=== PATIENT | female | born 1965 | race Caucasian/White ===

== ENCOUNTER 2016-07-30 06:08 | Day surgery (SDC) | payer BC, OTHER ==
[~2016-07-30] VITALS: Ht 160 cm; Wt 80.5 kg
[2016-07-30] VITALS (9 sets, daily range): BP systolic 98–114; BP diastolic 63–80; PULSE 57–70; RESP 14–22; Ht 160 cm; Wt 80.5 kg
[~2016-07-30 06:08] MED LIST: CEFAZOLIN 2 GM/50 ML (PMX) 50 ML IVPB ONE; SOD CHLORIDE 0.9% 1,000 ML IV ONE
[2016-07-30] MEDS ORDERED: BUPIVACAINE 0.25%/EPI (SDV) 30 ML INJ ONE (07:06)
[2016-07-30] MEDS ORDERED: FENTAnyl 50 MCG/ML VIAL ONE (07:34)
[2016-07-30] MEDS ORDERED: MIDAZOLAM 1 MG/ML 2 ML INJ ONE (07:34)
[2016-07-30] MEDS ORDERED: BUPIVACAINE 0.25%/EPI (SDV) 30 ML INJ INJ ONE (08:14)
--- NOTE | 2016-07-30 08:17 | OPR ---
Date/Time of Note Date/Time of Note DATE: 07/30/16 TIME: 08:14 Operative Report Procedure Date: Jul 30, 2016 Preoperative Diagnosis Soft tissue mass right thigh Postoperative Diagnosis Soft tissue mass right thigh Operation Performed Excision soft tissue mass right thigh approximately 4 cm Surgeon: KENDAL LARSEN MD Anesthesia: general Anesthesiologist: PÉREZ EISENBERG MD Estimated Blood Loss: minimal Specimens Right thigh mass Complications: None Pt Condition Post Procedure: stable Disposition: PACU Indications Patient is a 50-year-old female presented to the office complaining of a mass of the right inner thigh. This has been present for several years, but it recently been enlarging and causing increasing pain and discomfort. She was scheduled for excision of the right thigh mass for symptom relief and definitive pathological diagnosis. All risks and benefits of the procedure including, but not limited to: Wound infection, excessive bleeding, postoperative seroma/hematoma formation, mass recurrence, etc. were all explained to the patient in full detail. She fully understood and wished to proceed with the procedure. Informed consent was obtained. Operative\Procedure Findings Right thigh mass consistent with lipoma Procedure Description The patient was brought to the operating room and placed supine on the operating table. Bilateral sequential compression devices were placed on both lower extremities. A dose of broad-spectrum perioperative intravenous antibiotics was given. After the induction of smooth general anesthesia the patient's legs were positioned in a frog-leg position. The right inner thigh mass was preoperatively marked and confirmed with the patient in the holding area. After performance of the surgical timeout 0.25% Marcaine with epinephrine was infiltrated in a radial fashion around the area of the mass to create a field block. An incision was then made over the mass using a 15 blade scalpel. Incision was carried down through the skin into the subcutaneous tissues using sharp dissection. A lipomatous lesion was identified in the subcutaneous tissues. It was dissected free of surrounding tissues and transected at its base and passed off the field as specimen. The wound cavity was then irrigated with warm normal saline and the irrigant returned clear. Hemostasis was inspected for and noted to be adequate. The wound was then reapproximated using a running 4-0 Monocryl suture in subcuticular fashion. Incision was then cleaned and Dermabond was applied. The patient was awoken from anesthesia and transported to the recovery room in stable condition. All counts were correct at the end of the case 2. KENDAL LARSEN MD Jul 30, 2016 08:17
[2016-07-30] MEDS ORDERED: PROPOFOL 20 ML ONE (08:23)
[2016-07-30] MEDS ORDERED: LIDOCAINE 2% (SDV) 5 ML INJ ONE (08:23)
[2016-07-30] MEDS ORDERED: CEFAZOLIN 1 GM INJ ONE (08:23)
[2016-07-30] MEDS ORDERED: MEPERIDINE 25 MG INJ IV PRN (08:30)
[2016-07-30] MEDS ORDERED: DIPHENHYDRAMINE 50 MG INJ IV PRN (08:30)
[2016-07-30] MEDS ORDERED: IBUPROFEN 600 MG TAB PO PRN (08:30)
[2016-07-30] MEDS ORDERED: FENTAnyl 50 MCG/ML VIAL IV PRN (08:30)
[2016-07-30] MEDS ORDERED: ONDANSETRON 4 MG INJ IV PRN ×2 (08:30)
[2016-07-30] MEDS ORDERED: KETOROLAC 30 MG INJ IV PRN (08:30)
== END 2016-07-30 09:55 | disposition home or self-care (01) ==
LOC: SDS 06:08
PROVIDERS: ATTEND Surgery
DX: D17.23 Benign lipomatous neoplasm of skin and subcutaneous tissue of right leg (principal)
CPT/HCPCS: 11406; 88305; J0690; J2250; J3010; J7030; Z7512; Z7610